=== PATIENT | female | born 2000 | race African-American/Black ===

== ENCOUNTER 2023-12-20 10:10 | Emergency (ER) | payer OTHER, SELFPAY ==
[2023-12-20 10:30] VITALS: BP 108/67; PULSE 91; RESP 16; TEMP 35.9; O2SAT 96; BMI 37.8
--- NOTE | 2023-12-20 11:34 | ED_ITS ---
HPI - General Adult General Time Seen by Provider: 11:34 Date Seen: 12/20/23 Chief complaint: Abdominal Pain Stated complaint: Acid reflux Time Seen by Provider: 12/20/23 11:32 Source: patient, RN notes reviewed and old records reviewed Mode of arrival: ambulatory Limitations: no limitations History of Present Illness HPI narrative: This 23-year-old female from [facility] is coming in with pain with eating. She is also reporting reflux symptoms. Last night was better than the night before. Two weeks ago she was treated with 5 day course of steroids for viral bronchitis. Saturday she reportedly started having emesis, evans black in nature, burning in her throat, went to urgent care yesterday, had negative strep, had a CBC done. They put her on omeprazole 20 b.i.d. for 14 days and famotidine 20 mg b.i.d. x3 days. night she notes she was having more problem sleeping but last night was better. She feels her cough is possibly little worse with the reflux symptoms again. No fevers or chills. She states she still been having bowel movements but has not had 1 recently. She endorses diminished food intake. She is endorsing both acid reflux symptoms as well as some difficulty eating. Prior to Saturday of this week, notes Saturday night of last week, 1 week ago had steak and wine in just felt like it did not digest well. Saturday night she did not sleep well but also had alcohol that night. Saturday morning of this week when her symptoms started she just woke up and felt bloated in a bit sluggish. She ate oatmeal that morning. She did have 2 sliders for lunch that day. She really has not eaten anything much since then. Only had tea and water yesterday. On Saturday she did have episodes of reported red and black vomiting. She does show me a picture, it is dark, do think I can potentially see some reddish change in the vomit. She is worried about esophageal perforation. Reviewed with her that with her clinical presentation and her looking so clinically well, I am not very suspicious of an esophageal perforation. We reviewed how sick those patients do get. Did review with her though that she recently was on prednisone, that can cause some gastric irritation. Also reviewed that with her symptoms, would consider having her get an EGD if symptoms were continuing. We do not do those emergently out of the ER. She does understand that. Will start with some imaging, obtain further labs. Note for labs yesterday, had negative strep, white blood count was mildly up at 16,390, hemoglobin at 11.7. Absolute neutrophil count 12,900. Related Data Previous Rx's Medication Instructions Recorded famotidine 20 mg tablet 20 mg PO BID 3 days #6 tabs 12/19/23 omeprazole 20 mg tablet,delayed 20 mg PO BID 14 days #28 tabs 12/19/23 release Allergies Allergy/AdvReac Type Severity Reaction Status Date / Time No Known Drug Allergies Allergy Verified 12/19/23 18:13 Review of Systems Status of ROS: Reports: 6 or more systems reviewed and unremarkable except as noted in History and below Exam Const: Vital Signs, click to edit/add: Vital Signs - 24 hr 12/20/23 10:30 12/20/23 12:33 Temperature 96.7 F L Pulse Rate [Pulse Oximeter] 91 88 Respiratory Rate 16 16 Blood Pressure [Ri ght Upper Arm] 108/67 111/76 Pulse Oximetry 96 98 Oxygen Delivery Me thod Room Air Room Air Patient is alert, interactive, no apparent distress, sitting upright in the chair in exam room 4. Sclera clear, able speak in complete sentences, no hoarseness. Lungs clear, good air entry, no wheezing crackles. CV regular rate and rhythm, no murmur, normal S1-S2, no S3-S4. Abdomen is currently soft, complains of no tenderness on palpation, does have normal bowel sounds. No masses organomegaly noted, certainly no rebound or guarding. Documenting provider has reviewed patient's vital signs: yes Course Course ED Course: Will obtain flat and upright imaging to rule out obstructive process. Will recheck some labs on her including CBC and comprehensive metabolic panel. [facility], she does not have an acute surgical abdomen, exam is quite benign. She certainly could have some late affects of prednisone, possible atypical gastroenteritis. She could be manifesting reflux as well, would not surprise me in recent setting of prednisone use. Reevaluation(s) Time of Reevaluation #1: 13:01 Reevaluation #1: Reviewed with patient her abdominal imaging is not showing any acute pathology. Her white blood count actually looks better, chemistries overall has out of mild be increase in her C reactive protein are fine. Given her benign abdominal examination, negative labs, doubt that we need to be worried about anything such as pancreatitis or gallbladder disease at this time. She is having no obstructive pathology. She wants to try some apple juice and crackers, we will see if she can tolerate this. Plan will be to discharge to home with further outpatient follow-up if ongoing symptoms. It is possible she has ongoing issue she may need to have an EGD but does not require this emergently now. She does not need any further imaging based on her evaluation here at this time. With her normal hemoglobin, there is no evidence of any active bleeding at this time. Agree with completion of the outpatient medicine she was given in urgent care. Vital Signs Vital signs: Initial Vital Signs Temperature 96.7 F L 12/20/23 10:30 Temperature Source Temporal Artery Scan 12/20/23 10:30 Pulse Rate 91 12/20/23 10:30 Respiratory Rate 16 12/20/23 10:30 Blood Pressure 108/67 12/20/23 10:30 Blood Pressure Mean 80 12/20/23 10:30 Blood Pressure Position Supine 12/20/23 10:30 Pulse Oximetry 96 12/20/23 10:30 Oxygen Delivery Method Room Air 12/20/23 10:30 Vital Signs Temperature 96.7 F L 12/20/23 10:30 Pulse Rate 91 12/20/23 10:30 Respiratory Rate 16 12/20/23 10:30 Blood Pressure 108/67 12/20/23 10:30 Pulse Oximetry 96 12/20/23 10:30 Oxygen Delivery Method Room Air 12/20/23 10:30 Temperature 96.7 F L 12/20/23 10:30 Pulse Rate 88 12/20/23 12:33 Respiratory Rate 16 12/20/23 12:33 Blood Pressure 111/76 12/20/23 12:33 Pulse Oximetry 98 12/20/23 12:33 Oxygen Delivery Method Room Air 12/20/23 12:33 Medical Decision Making Lab Data Labs: Lab Results 12/20/23 Range/Units 11:54 WBC 8.50 (4.50-11.00) K/uL RBC 4.47 (4.00-5.20) m/uL Hgb 12.1 (12.0-16.0) gm/dL Hct 38.6 (33.0-51.0) % MCV 86 (80-100) fL MCH 27 (26-34) pg MCHC 31 L (32-36) gm/dL RDW Coeff of Jenny 13.0 (11.5-15.5) % Plt Count 355 (140-440) K/uL Neut % (Auto) 74.1 H (42.0-72.0) % Lymph % (Auto) 17.4 L (20-44) % Letcher % (Auto) 4.8 (0.0-11.0) % Eos % (Auto) 3.2 (0.0-7.0) % Baso % (Auto) 0.4 (0.0-3.0) % Neut # (Auto) 6.30 (1.7-7.0) K/uL Lymph # (Auto) 1.50 (0.90-2.90) K/uL Letcher # (Auto) 0.40 (0.00-0.90) K/UL Eos # (Auto) 0.27 (0.00-0.50) K/uL Baso # (Auto) 0.03 (0.00-0.30) K/uL Abs Immat Gran (auto) 0.01 (0.00-0.30) K/uL Imm/Tot Granulo (auto) 0.1 % Sodium 139 (135-149) mmol/L Potassium 3.5 L (3.6-5.1) mmol/L Chloride 104 (96-114) mmol/L Carbon Dioxide 25 (20-32) mmol/L Anion Gap 10 (7-15) mEq/L BUN 6 (5-24) mg/dL Creatinine 0.7 (0.5-1.5) mg/dL Estimated Creat Clear 118.01 Estimated GFR 125 ml/min Glucose 94 (60-115) mg/dL Lactate 0.6 (0.5-1.9) mmol/L Calcium 9.4 (8.4-10.6) mg/dL Total Bilirubin 0.9 (0.1-1.5) mg/dL AST 19 (12-35) U/L ALT 21 (4-35) U/L Alkaline Phosphatase 51 (40-150) U/L C-Reactive Protein 4.6 H (0.5-1.0) mg/dL Total Protein 8.1 (6.0-8.3) g/dL Albumin 4.7 (3.3-5.0) g/dL Lipase 46 (23-300) U/L Imaging Data Abdominal x-ray: Attestation: I have reviewed the pertinent imaging results. My impression: I see no acute pathology on this imaging on my preliminary review. Radiologist's impression: Patient: CHAVEZ LIND Facility:?[facility] Patient ID:?[id number] Site Patient ID:?[id number]. Site :?[id number] Study:?XRay Abdomen F/UP-12/20/2023 12:19:58 PM Ordering Physician:Jerica Zaragoza Final Report: Indication: Abdominal pain Technique: Flat and upright views of the abdomen were acquired Comparison: None Findings: No pathologic calcifications. No findings of ileus, obstruction or perforation. No free air. Mild fecal retention. Impression: Mild fecal retention. No pathologic calcifications. No findings of ileus, mechanical obstruction or perforation. Dictated by Michael Falk MD @ 12/20/2023 12:44:21 PM (Electronic Signature) Discharge Plan Discharge Clinical Impression: Gastroesophageal reflux disease Qualifiers: Esophagitis presence: esophagitis presence not specified Qualified Code(s): K21.9 - Gastro-esophageal reflux disease without esophagitis Patient Disposition: Home, Self-Care Condition: Stable Instructions: GERD (Gastroesophageal Reflux Disease) (ED) Additional Instructions: Complete the medications that were prescribed in urgent care, take as they were prescribed. Recommend clear liquids and soft foods, can advance diet back to regular as you are feeling better. There is no evidence of any active bleeding or anemia from blood loss at this time. It is possible if people have stomach irritation or do throw up that there can be small Rips in the lining, this is call the Sheila-Gomez tear. These are usually self-limited and not of concern in the vast majority of people. This time, there is no evidence of any concerning active bleeding for you. I would have you watch for increasing abdominal pain, abdominal pain associated with fever or vomiting and recheck if you have any of these. See if the omeprazole does start to help through the weekend. If you are continuing to have reflux symptoms or any pain with swallowing, may need an EGD scheduled. Before you would ever have an EGD here, would highly encourage you to work with your insurance to make sure our facility is covered for this outpatient procedure. Activity Level: Activity as Tolerated Prescriptions: No Action omeprazole 20 mg tablet,delayed release (DR/EC) 20 mg PO BID 14 Days Qty: 28 0RF famotidine 20 mg tablet 20 mg PO BID 3 Days Qty: 6 0RF Follow Up/Referrals: Provider,Not a Local [Primary Care Provider] - Stand Alone Forms: Rapportive Info Instructions
--- NOTE | 2023-12-20 11:43 | CRLHL7_ITS ---
For Patients: As a result of the Century Cures Act, medical imaging exams and procedure reports are released immediately into your electronic medical record. You may view this report before your referring provider. If you have questions, please contact your health care provider. Indication: Abdominal pain Technique: Flat and upright views of the abdomen were acquired Comparison: None Findings: No pathologic calcifications. No findings of ileus, obstruction or perforation. No free air. Mild fecal retention. Impression: Mild fecal retention. No pathologic calcifications. No findings of ileus, mechanical obstruction or perforation. Dictated by Michael Falk MD @ 12/20/2023 12:44:21 PM (Electronically Signed)
[2023-12-20 12:00] LABS: Lactate* 0.6 mmol/L (0.5-1.9)
[2023-12-20 12:01] LABS: Basophils Absolute Auto 0.03 K/uL (0.00-0.30); Basophils Percent Auto 0.4 % (0.0-3.0); Eosinophils Absolute Auto 0.27 K/uL (0.00-0.50); Eosinophils Percent Auto 3.2 % (0.0-7.0); Hematocrit 38.6 % (33.0-51.0); Hemoglobin* 12.1 gm/dL (12.0-16.0); Immature Granulocytes Abs Auto 0.01 K/uL (0.00-0.30); Immature Granulocytes Pct Auto 0.1 %; Lymphocytes Percent Auto 17.4 % (20-44); Mean Corpuscular HGB Conc 31 gm/dL (32-36); Mean Corpuscular Hemoglobin 27 pg (26-34); Mean Corpuscular Volume 86 fL (80-100); Monocytes Percent Auto 4.8 % (0.0-11.0); Neutrophils Percent Auto 74.1 % (42.0-72.0); Platelet Count* 355 K/uL (140-440); Red Blood Count 4.47 m/uL (4.00-5.20)
--- OUTSIDE RECORDS SUMMARY | 2023-12-20 12:07 | XMS_ITS | Referral Summary ---
Author Name Unknown Organization [facility] Address [address] [place] [id number] Care Team Providers Care Hand Wrapper Operator Name Role Phone No Ref-Primary, Physician Primary Care Provider Allergies No known active allergies Medications Medication Sig Dispensed Refills Start Date End Date Status zolpidem (AMBIEN) 5 MG tablet Take tablet by mouth 15 minutes prior to sleep, for Sleep Study 1 tablet 0 10/27/2020 Active Active Problems Problem Noted Date Diagnosed Date Bipolar 1 disorder 10/27/2020 Class 1 obesity due to exces s calories with body mass index (BMI) of 32.0 to 32.9 in adult, unspecified whether serious comorbidity present 10/27/2020 Social History Tobacco Use Types Packs/Day Years Used Date Smoking Tobacco: Never Smokeless Tobacco: Never Adolescent Education Answer Date Record ed Getting School Help Needed Not on file 08/16 Sex and Gender Information Value Date Recorded Sex Assigned at Not on file Gender Identity Not on file Sexual Orientation Not on file Last Filed Vital Signs Vital Sign Reading Time Taken Comments Blood Pressure - - Pulse - - Temperature - - Respiratory Rate - - Oxygen Saturation - - Inhaled Oxygen Concentration - - Weight 90.7 kg (200 lb) 10/27/2020 9:37 AM SALON DESIGNER Height 167.6 cm (5' 6) 10/27/2020 9:37 AM SALON DESIGNER Body Mass Index 32.28 10/27/2020 9:37 AM SALON DESIGNER Plan of Treatment Not on file Care Teams Hand Wrapper Operator Relationship Specialty Start Date End Date No Ref-Primary, Physician PCP - General 10/18/20
--- OUTSIDE RECORDS SUMMARY | 2023-12-20 12:07 | XMS_ITS | Clinical Summary ---
Author Name Unknown Organization [facility] Address [place], [place] [address] Care Team Providers Care Regional Driver Name Role Phone Pcp, No Unavailable Unavailable Bin Haynes DO Primary Care Provider Amanda ramon Allergies No known active allergies Medications Medication Sig Dispensed Refills Start Date End Date Status ARIPiprazole (ABILIFY) 5 mg tablet Take 7.5 mg by mouth once daily. 0 09/22/2021 Active dextroamphetamine-a mphetamine (ADDERALL XR) 5 mg Extended-Release capsule Take 5 mg by mouth once daily. 0 08/14/2022 Active typhoid vaccin,live,attenua padilla (Vivotif Lacey Vaccine) 2 billion unit capsuleIndications: Typhoid-paratyphoid vaccination Take 1 capsule by mouth with lukewarm water on empty stomach on days 1,3,5 and 7. 4 Capsule 0 10/15/2022 Active doxycycline (ADOXA) 100 mg tabletIndications:P harmacologic therapy Begin 1-2 days before and continue until 4 wks after exposure for prevention of malaria. 105 Tablet 0 10/15/2022 Active Active Problems Problem Noted Date Diagnosed Date Bipolar 1 disorder 10/27/2020 Class 1 obesity due to exces s calories with body mass index (BMI) of 32.0 to 32.9 in adult 10/27/2020 Immunizations Name Administration Dates Next Due COVID-19 vaccine (Moderna 100mcg/0.5mL) PFRAYMOND 12/08/2021 COVID-19 vaccine ([employer] 30mcg/0.3mL) PF, MDV 03/17/2021,02/24/2021 DTP 06/03/2006, 3,06/01/2002,04/10,01/30/2002 DTaP 06/03/2006, 3,06/01/2002,04/10,01/30/2002 HIB-HepB (Comvax) 12/22/2002,04/10/2002,01/31/20 02 HPV 9 (Gardasil 9) 01/14/2017,07/25/2016 Hepatitis A (Peds) 01/26/2009,06/03/2006 Human Papilloma Virus Vaccine 07/25/2016 Inactivated Polio Vaccine 06/03/2006,06/2002,04/10/2002,01/30 Influenza, IIV3 (Age 6-35 mos) 05/05/2019,2002,09/30/2003 Influenza, IIV3 (Age >=3 years) 11/21/20 12,10/05/2008,11/01/2003,09/30 Influenza,LAIV4 Live Intrana nataliia (Flumist) 09/17/2022,09/08/2021,08/11/2020 MMR 06/03/2006,12/23/2002 Meningococcal Mcv4, Unspecif ied Formulation 10/11/2020 Meningococcal Vaccine 10/11/2020 Meningococcal Vaccine (Menactra) 05/05/2019,02/2013 Pneumococcal conj 7-Valent (Prevnar 7) 1 11/30/2002,06/01/2002,04/10/2002,03/10 Polio Virus, Unspecified 06/03/2006,06/2002,04/10/2002,01/30 Tdap 10/11/2020,11/21/2012 Typhoid (injectable) 05/05/2019 Varicella Vaccine 01/26/2009,12/23/2002 Yellow Fever 05/05/2019 Family History Medical History Relation Name Comments Diabetes Father Good Health Mother Relation Name Status Comments Father Mother Social History Tobacco Use Types Packs/Day Years Used Date Smoking Tobacco: Never Smokeless Tobacco: Never Tobacco Cessation:Counseling Given: Yes Alcohol Use Standard Drinks/Week Comments No 0 (1 standard drink = 0.6 oz pur e alcohol) PHQ-2 Answer Date Recorded PHQ-2 TOTAL SCORE 6 12/23/2020 Social Connections Answer Date Recorded Frequency of Communication with Friends and Fami ly Not on file 11/24/2021 Financial Resource Strain Answer Date R ecorded Difficulty of Paying Living Expenses Not on file 11/24/2021 Difficulty of Paying Living Expenses Not on file 11/24/2021 Sex and Gender Information Value Date Recorded Sex Assigned at Not on file Gender Identity Not on file Sexual Orientation Not on file Obstetrics History Last Filed Vital Signs Vital Sign Reading Time Taken Comments Blood Pressure 114/71 10/15/2022 1:36 PM CHIEF LIBRARIAN CIRCULATION DEPARTMENT Pulse 70 10/15/2022 1:36 PM CHIEF LIBRARIAN CIRCULATION DEPARTMENT Temperature 36.9 ??C (98.5 ??F) 07/03/2016 11:20 AM C DT Respiratory Rate 16 06/11/2017 10:13 AM CDT Oxygen Saturation 100% 10/15/2022 1:36 PM CHIEF LIBRARIAN CIRCULATION DEPARTMENT Inhaled Oxygen Concentration - - Weight 103 kg (227 lb) 10/15/2022 1:36 PM CHIEF LIBRARIAN CIRCULATION DEPARTMENT Height 168.5 cm (5' 6.34) 12/23/2020 2:03 PM CS T Body Mass Index - - Plan of Treatment Health Maintenance Due Date Last Done Comments HIV for age 15-65 2016 Hepatitis C screening for age 18-79 2019 BMI (ht and wt on same day) for age 18+ 12/23/2021 12/23/2020 Depression screening for age 12+ 12/23/2021 12/23/2020, 06/11/2017, 06/11/2017, Additional history exists Pap test for age 21-65 2022 COVID-19 vaccine series (2022- season) 2023 09/17/2022, 12/08/2021, 03/17/2021, Additional history exists Influenza for age 9-49 07/26/2023 , 09/08/2021, 08/11/2020, Additional history exists Tetanus booster 10/11/2030 10/11/2020, 11/21/2012 Pneumococcal series for age 6-64 Aged Out 09/30/2003, 06/01/2002, 04/10/2002, Additional history exists No longer eligible based on patient's age to complete this topic HPV series for age 9-26 Completed 01/14/20, 07/25/2016, 07/25/2016 Tdap Completed 10/11/2020, 11/21/2012 Care Teams Regional Driver Relationship Specialty Start Date End Date Bin Haynes DO . PCP - General Family Practice 07/03/16 Pcp, No . 06/29/15
--- OUTSIDE RECORDS SUMMARY | 2023-12-20 12:07 | XMS_ITS | Clinical Summary ---
Author Name Unknown Organization [facility] Address [address] [place] [id number] Care Team Providers Care Mothercraft Nurse Name Role Phone No Ref-Primary, Physician Primary [...] 90.7 kg (200 lb) 10/27/2020 9:37 AM DIRECTOR OF PUBLIC SAFETY Height 167.6 cm (5' 6) 10/27/2020 9:37 AM DIRECTOR OF PUBLIC SAFETY Body Mass Index 32.28 10/27/2020 9:37 AM DIRECTOR OF PUBLIC SAFETY Plan of Treatment Health Maintenance Due Date Last Done Comments ADVANCE CARE PLANNING 2001 ANNUAL REVIEW OF HM ORDERS 2001 CHLAMYDIA SCREENING 2001 YEARLY PREVENTIVE VISIT 2001 COVID-19 Vaccine (#1) 05/28/2002 DTAP/TDAP/TD IMMUNIZATION (6 - Tdap) 2012 06/03/2006, 12/23/2002, 06/01/2002, Additional history exists HIV SCREENING 2016 HEPATITIS C SCREENING 2019 PAP 2022 INFLUENZA VACCINE (#1) 2023 2, 10/05/2008, 11/01/2003, Additional history exists PHQ-2 (once per calendar year) 2023 HEPATITIS B IMMUNIZATION Completed 003, 04/10/2002, 01/30/2002 Pneumococcal Vaccine: Pediatrics (0 to 5 Years) and At-Risk Patients (6 to 64 Years) Aged Out 09/30/2003, 06/01/2002, 04/10/2002, Additional history exists No longer eligible based on patient's age to complete this topic IPV IMMUNIZATION Completed 06/03/2006, 08/2006, 06/01/2002, Additional history exists HPV IMMUNIZATION Completed 01/14/2017, , 07/25/2016 MENINGITIS IMMUNIZATION Completed 05/05/2019, 11/28 RSV MONOCLONAL ANTIBODY Aged Out No l onger eligible based on patient's age to complete this topic Care Teams Mothercraft Nurse Relationship Specialty Start Date End Date No Ref-Primary, Physician PCP - General 10/18/20
[2023-12-20 12:17] LABS: Slide Review Reflex No
[2023-12-20 12:23] LABS: Albumin* 4.7 g/dL (3.3-5.0); Chloride* 104 mmol/L (96-114); Potassium* 3.5 mmol/L (3.6-5.1); Sodium* 139 mmol/L (135-149)
[2023-12-20 12:25] LABS: Creatinine* 0.7 mg/dL (0.5-1.5); Est. Creatinine Clearance* 118.01; Estimated Glomerular Filt Rate 125 ml/min
[2023-12-20 12:26] LABS: Alanine Aminotransferase* 21 U/L (4-35); Alkaline Phosphatase* 51 U/L (40-150); Anion Gap 10 mEq/L (7-15); Aspartate Amino Transferase* 19 U/L (12-35); Bilirubin Total* 0.9 mg/dL (0.1-1.5); Blood Urea Nitrogen* 6 mg/dL (5-24); Carbon Dioxide* 25 mmol/L (20-32); Lipase* 46 U/L (23-300); Total Protein* 8.1 g/dL (6.0-8.3)
[2023-12-20 12:27] LABS: Calcium* 9.4 mg/dL (8.4-10.6); Glucose* 94 mg/dL (60-115)
[2023-12-20 12:29] LABS: C Reactive Protein* 4.6 mg/dL (0.5-1.0)
[2023-12-20 12:33] VITALS: BP 111/76; PULSE 88; RESP 16; O2SAT 98
== END 2023-12-20 13:18 | disposition home or self-care (01) ==
PROVIDERS: Emergency Provider Family Medicine
DX: K21.9 Gastro-esophageal reflux disease without esophagitis (principal)
CPT/HCPCS: 36415; 74019; 80053; 83605; 83690; 85025; 86140; 99283; 99284

== ENCOUNTER 2024-04-16 01:26 | Emergency (ER) | payer OTHER, SELFPAY ==
[2024-04-16 01:39] VITALS: BP 120/85; PULSE 66; RESP 20; TEMP 36.6; O2SAT 99; BMI 36.3
--- NOTE | 2024-04-16 01:47 | ED.GENADULT ---
HPI - General Adult General Chief complaint: Back Injury/Pain Stated complaint: back pain Time Seen by Provider: 04/16/24 01:37 History of Present Illness HPI narrative: Patient c/o intermittent upper back pain that woke her from sleep at 0035 today. Patient states she is recovering from bronchitis and a slight ear infection - was treated with amoxicillin at [facility] on 03/12/2024. Patient notes she has had some abdominal pain with her anbx use. Patient states that she cannot take oral steroids because it deteriorated her stomach lining in the past. Patient denies know injury. Patient took 200mg advil at 0045. 23-year-old young woman presenting to the emergency department concern of back pain. Woke much more extreme with this discomfort about an hour prior to arrival in the emergency department. Recently started on amoxicillin and prednisone with a diagnosis of ?bronchitis and a slight ear infection?. This though was 2 weeks ago. She is noting some stomach discomfort. On review of records available to me I only see reference to benzonatate. She is not having any ear pain. This discomfort in her back is not radiating. No noted injury. No dysuria frequency urgency. She has no shortness of breath and pain is not pleuritic. No leg pain or swelling. Related Data Home Medications ?Medication ?Instructions ?Recorded ?Confirmed etonogestrel 68 mg subdermal 1 implant subdermal ONCE 03/12/24 03/12/24 implant (Nexplanon) norethindrone 1 mg-ethinyl 1 tab PO DAILY 03/12/24 03/12/24 estradiol 20 mcg (21)-iron 75 mg (7) tablet (Aurovela Fe 1-20 (28)) Previous Rx's ?Medication ?Instructions ?Recorded benzonatate 200 mg capsule 200 mg PO BID-TID PRN cough #30 03/12/24 caps Allergies Allergy/AdvReac Type Severity Reaction Status Date / Time No Known Drug Allergies Allergy Verified 03/12/24 16:14 Review of Systems Status of ROS: Reports: 6 or more systems reviewed and unremarkable except as noted in History and below [facility] Social History Smoking Status: Former smoker Do you use any of these nicotine containing products: None Second hand tobacco smoke exposure: No How often do you have a drink containing alcohol: monthly or less AUDIT-C Alcohol total score: 1 Non-prescribed substance use: denies use service: No Exam Narrative: Exam Narrative: Pleasant. NAD. A little restless. Breathing easily. Transitions without difficulty. Moving upper extremities and lower extremities without difficulty. She is well-perfused peripherally. Strong equal pulses. Neck is supple without swelling or lymphadenopathy. No supraclavicular crepitus. Lungs are clear breath sounds throughout. Equal expansion excursion of the chest. Area in question of discomfort seems to be at the lower corner of the left scapula. Vaguely reproducible to palpation. No swelling or erythema here either. No pain to palpation of the lower extremities. Negative Homans. No swelling. Const: Vital Signs, click to edit/add: Vital Signs - 24 hr 04/16/24 01:39 Temperature 97.8 F Pulse Rate [Left P ulse Oximeter] 66 Respiratory Rate 20 Blood Pressure [Ri ght Upper Arm] 120/85 Pulse Oximetry 99 Oxygen Delivery Me thod Room Air Documenting provider has reviewed patient's vital signs: yes Course Vital Signs Vital signs: Initial Vital Signs Temperature 97.8 F 04/16/24 01:39 Temperature Source Temporal Artery Scan 04/16/24 01:39 Pulse Rate 66 04/16/24 01:39 Pulse Rhythm Regular 04/16/24 01:39 Respiratory Rate 20 04/16/24 01:39 Blood Pressure 120/85 04/16/24 01:39 Blood Pressure Mean 96 04/16/24 01:39 Blood Pressure Position Sitting 04/16/24 01:39 Pulse Oximetry 99 04/16/24 01:39 Oxygen Delivery Method Room Air 04/16/24 01:39 Vital Signs Temperature 97.8 F 04/16/24 01:39 Pulse Rate 66 04/16/24 01:39 Respiratory Rate 20 04/16/24 01:39 Blood Pressure 120/85 04/16/24 01:39 Pulse Oximetry 99 04/16/24 01:39 Oxygen Delivery Method Room Air 04/16/24 01:39 Temperature 97.8 F 04/16/24 01:39 Pulse Rate 66 04/16/24 01:39 Respiratory Rate 20 04/16/24 01:39 Blood Pressure 120/85 04/16/24 01:39 Pulse Oximetry 99 04/16/24 01:39 Oxygen Delivery Method Room Air 04/16/24 01:39 Medical Decision Making [facility] Narrative Medical decision making narrative: Given her described history perhaps pneumonia has evolved in this area in contributing to the pain. This seems to be somewhat musculoskeletal/chest wall. I do not see any rash to suggest evolving shingles. Did not clarify as to whether not had varicella vaccine. Pulmonary embolus is in differential as well though not really pleuritic. Pneumothorax or pneumomediastinum?. Doubtful vascular disruption. Costochondritis? She did not feel that she needed any pain medication. Decided to initiate investigation with basic chest x-ray. Reviewed by me this is normal. No pneumothorax or infiltrate. I returned to find Janel bent over backwards on the bed feet on the floor in an apparent attempt to stretch out her back. Discussing differential further decided to screen with some lab testing. White count is mildly elevated. CRP normal. Normal D-dimer. I think I would approach this now from musculoskeletal. Monitor closely for worsening or respiratory symptoms. With a mildly elevated white count this might represent more of a costochondritis? See patient discharge plan further discussion/plan Lab Data Lab results reviewed: Yes I reviewed the patient's lab results Labs: Lab Results 04/16/24 Range/Units 02:45 WBC 11.11 H (4.50-11.00) K/uL RBC 4.45 (4.00-5.20) m/uL Hgb 12.0 (12.0-16.0) gm/dL Hct 37.9 (33.0-51.0) % MCV 85 (80-100) fL MCH 27 (26-34) pg MCHC 32 (32-36) gm/dL RDW Coeff of Jenny 12.7 (11.5-15.5) % Plt Count 367 (140-440) K/uL Neut % (Auto) 67.5 (42.0-72.0) % Lymph % (Auto) 24.8 (20-44) % Mower % (Auto) 5.0 (0.0-11.0) % Eos % (Auto) 2.2 (0.0-7.0) % Baso % (Auto) 0.2 (0.0-3.0) % Neut # (Auto) 7.50 H (1.7-7.0) K/uL Lymph # (Auto) 2.80 (0.90-2.90) K/uL Mower # (Auto) 0.60 (0.00-0.90) K/UL Eos # (Auto) 0.20 (0.00-0.50) K/uL Baso # (Auto) 0.00 (0.00-0.30) K/uL Abs Immat Gran (auto) 0.00 (0.00-0.30) K/uL Imm/Tot Granulo (auto) 0.3 % D-Dimer Quant (PE/DVT) 0.21 (0.00-0.50) ug/ml C-Reactive Protein < 0.5 L (0.5-1.0) mg/dL Discharge Plan Discharge Clinical Impression: Thoracic back pain Patient Disposition: Home, Self-Care Condition: Improved Additional Instructions: See handout on stretches for the upper back that I would consider doing months or twice daily in the short term. Be re-evaluated for marked increase in pain, increasing difficulty breathing, associated fever. Can take up to 800 mg of ibuprofen or up to 1000 mg acetaminophen per dose. Alternative to the ibuprofen might be up to 500 mg naproxen 2 times daily. Prescriptions: No Action norethindrone-e.estradiol-iron [Aurovela Fe 1-20 (28)] 1 mg-20 mcg (21)/75 mg (7) tablet 1 tab PO DAILY Nexplanon 68 mg implant 1 implant subdermal ONCE Rx Instructions: as a single dose benzonatate 200 mg capsule 200 mg PO BID-TID PRN (Reason: cough) Qty: 30 0RF Follow Up/Referrals: Provider,Not a Local [Primary Care Provider] - Stand Alone Forms: OVIAth Info Instructions
--- NOTE | 2024-04-16 01:53 | CRLHL7_ITS ---
For Patients: As a result of the Century Cures Act, medical imaging exams and procedure reports are released immediately into your electronic medical record. You may view this report before your referring provider. If you have questions, please contact your health care provider. INDICATION: Back pain. TECHNIQUE: Chest 1 view. COMPARISON: None. FINDINGS: Cardiovascular and mediastinum: Heart size and vasculature are normal in caliber and appearance. Lungs and pleural spaces: Lungs are clear. No sign of infiltrate or mass. No sign of pleural effusion. No pneumothorax. Bones and soft tissues: No significant findings. IMPRESSION: Unremarkable chest. Dictated by Mitchell Zapata MD @ 04/16/2024 3:24:30 AM (Electronically Signed)
--- OUTSIDE RECORDS SUMMARY | 2024-04-16 02:02 | XMS_ITS | Encounter Summary ---
Author Organization [facility] Address [address] [address] Care Team Providers Care Medical Coding Technician Name Role Phone Unavailable Primary Care Provider Unavailabl e Reason for Visit * Reason Comments LAB RESULTS Encounter Details Date Type Department Care Team (Late st Contact Info) Description 02/11/2024 Telephone [place] Certified Nurse [employer] [address] [place], [place] [phone] Stephani Small, [employer], CN [address] [place], [place] [phone] LAB RESULTS Social History Tobacco Use Types Packs/Day Years Used Date Smoking Tobacco: Never Smokeless Tobacco: Never Alcohol Use Standard Drinks/Week Comments Not Currently 0 (1 standard drink = 0.6 oz pur e alcohol) Sex and Gender Information Value Date Recorded Sex Assigned at Female 02/07/2024 2:54 PM CDT Gender Identity Female 02/07/2024 2:54 PM CDT Sexual Orientation Pansexual 02/07/2024 2: 54 PM CDT Sexual Orientation Bisexual 02/07/2024 2: 54 PM CDT documented as of this encounter Progress Notes * Nicole Anna RN - 02/12/2024 4:46 PM CDTAddended by: NICOLE ANNA on: 02/12/2024 04:46 PM Modules accepted: Orders documented in this encounter Nursing Notes * Nicole Anna RN - 02/12/2024 4:45 PM CDT Pt calling, currently at [facility] in [place] to get Flagyl and Diflucan prescriptions. Says their pharmacy computer system was shut down yesterday so they could not receive any prescriptions. Asking that they be re-sent now. Medications re-sent as requested. * Graciela Pena RN - 02/11/2024 12:53 PM CDT Pt returned call, reviewed message below. Advised to abstain from intercourse and ETOH during treatment. * Graciela Pena RN - 02/11/2024 12:20 PM CDT Called pt, left message for callback. * Stephani Small APRN, CNM - 02/11/2024 12:11 PM CDT Please notify Janel of positive BV and yeast, I have sent rx to her pharmacy. documented in this encounter Plan of Treatment Not on file documented as of this encounter Visit Diagnoses Diagnosis BV (bacterial vaginosis)- Primary Vaginitis and vulvovaginitis, unspecified Vaginal yeast infection Candidiasis of vulva and vagina documented in this encounter
--- OUTSIDE RECORDS SUMMARY | 2024-04-16 02:02 | XMS_ITS | Encounter Summary ---
Author Organization [facility] Address [address] [address] Care Team Providers Care Collector Of Port Name Role Phone Unavailable Primary Care Provider Unavailabl e Reason for Visit * Reason Comments Annual Exam Encounter Details Date Type Department Care Team (Late st Contact Info) Description 02/07/2024 2:30 PM CDT Office Visit [facility] Nurse Gasoline Service Attendant [address] [place], [place] [address] [place] [address] Stephani Small, TURRET LATHE OPERATOR, CNM [address] [place], [place] [id number] Annual physical exam (Primary Dx); Breakthrough bleeding on Nexplanon; Screening for thyroid disorder; Screening for malignant neoplasm of cervix; Screening for lipoid disorders; Screening for diabetes mellitus; Screening for STD (sexually transmitted disease) Social History Tobacco Use Types Packs/Day Years Used Date Smoking Tobacco: Never Smokeless Tobacco: Never Tobacco Cessation:Counseling Given: Not Answered Alcohol Use Standard Drinks/Week Comments Not Currently 0 (1 standard drink = 0.6 oz pur e alcohol) Sex and Gender Information Value Date Recorded Sex Assigned at Female 02/07/2024 2:54 PM CDT Gender Identity Female 02/07/2024 2:54 PM CDT Sexual Orientation Pansexual 02/07/2024 2: 54 PM CDT Sexual Orientation Bisexual 02/07/2024 2: 54 PM CDT documented as of this encounter Last Filed Vital Signs Vital Sign Reading Time Taken Comments Blood Pressure 120/57 02/07/2024 2:58 PM CDT Pulse 85 02/07/2024 2:58 PM CDT Temperature - - Respiratory Rate - - Oxygen Saturation - - Inhaled Oxygen Concentration - - Weight 103.9 kg (229 lb) 02/07/2024 2:58 PM CDT Height 166.9 cm (5' 5.71) 02/07/2024 2:58 PM CD T Body Mass Index 37.29 02/07/2024 2:58 PM CDT documented in this encounter Patient Instructions * Patient Instructions* Stephani Small APRN, CNM - 02/07/2024 2:30 PM CDT Advised patient she should be aware of the following symptoms when starting a control containing Estrogen and to call Triage Line or seek medical attention if the following symptoms occur: Abdominal Pain Chest Pain Severe Headaches Eye Problems/Vision Changes Severe Swelling in Legs * Attachments The following attachments cannot be sent through Care Everywhere. * Well Visit: 18 to 65 Years (Kazakh) * Breast Self-Exam (Kazakh) * !Vulvar Skin Care: To promote healthy vulvar skin (Kazakh) documented in this encounter Progress Notes * Stephani Small APRN, CNM - 02/07/2024 2:30 PM CDT Subjective: Janel Osuna is a 23 y.o. female who presents for an annual exam. Last annual exam was a few years ago; there have been no interval changes except what is noted here today. Patient's last menstrual period was 01/28/2024. The patient has the following complaints: Patient reports irregular cycles with her nexplanon, noted in the last year. She notes spotting for 3weeks to 1 month [facility] Additional, concern today is vaginal itching that is notice able after her cycles and lasts for couple week and has noticed a slight odor. Janel is Single. 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 MENSTRUAL HISTORY: Menarche at age 11. Menses are regular, every 30 days, and last 6 days. She denies bleeding after intercourse. Denies bleeding between periods. HEALTH HABITS: Social History Tobacco Use Smoking status: Never Smokeless tobacco: Never Substance Use Topics Alcohol use: Not Currently Alcohol/week: 0.0 - 1.0 standard drinks of alcohol Denies illicit or prescription drug use. Self breast exam: no. Wears seatbelts: yes. Regular exercise: yes. Calcium intake: adequate. DISTANCE LEARNING COORDINATOR HISTORY: Patient's last menstrual period was 01/28/2024. Sexual partners and contraception: single partner, contraception - Norplant. She is satisfied with this method. Last Pap: never had one done before Results: N/A. STD history: none. OB History Para Term AB Living 0 0 0 0 0 0 SAB IAB Ectopic Multiple Live Births 0 0 0 0 0 Past Medical History: Diagnosis Date Anxiety (HRC) Depression History reviewed. No pertinent surgical history. Patient's medications, allergies, past medical, surgical, social and family histories were reviewedand updated as appropriate. Immunization were reviewed and up to date. Review of Systems Unless noted below, complete review of systems was otherwise negative. Objective: BP 120/57 (BP Location: Right Arm, BP Cuff Size: Large) Pulse 85 Ht 5' 5.71 (1.669 m) Wt 229lb (103.9 kg) LMP 01/28/2024 No BMI 37.29 kg/m?? Estimated body mass index is 37.29 kg/m?? as calculated from the following: Height as of this encounter: 5' 5.71 (1.669 m). Weight as of this encounter: 229 lb (103.9 kg). General: Patient alert, in NAD. HEENT: PERRLA. Neck: Supple, without thyromegaly or mass. Upper extremities: FROM with good strength, no lesions or deformities. CARDIOVASCULAR: RRR without murmurs, rubs or gallops. LUNGS: Clear to auscultation without crackles, wheezes or distress. ABDOMEN: Soft, non-tender, without hepatosplenomegaly, masses, or hernias. BREAST: Nontender, without masses, nipple discharge, erythema, or axillary adenopathy. PELVIC: Normal external genitalia and urethra. [place], moist vaginal and cervical mucosa, without lesions. On bimanual exam, uterus is mobile, normal size, shape & consistency, with no uterine or adenexal masses appreciated. Rectal: Not examined. Lymphatic: No neck, supraclavicular, axillary or groin lymphadenopathy. Lower extremities: FROM, normal gait without edema, lesions, or deformity. Skin: No lesions. Neuro: grossly intact. Psychiatric: Alert & oriented with normal affect and insight, does not appear depressed or anxious. PHQ-9: 0. CESAR: 0. Assessment: Healthy female exam. 1. Annual physical exam 2. Breakthrough bleeding on Nexplanon 3. Screening for thyroid disorder 4. Screening for malignant neoplasm of cervix 5. Screening for lipoid disorders 6. Screening for diabetes mellitus 7. Screening for STD (sexually transmitted disease) Plan: Orders Placed This Encounter Procedures PAP Test HGB A1C TSH LIPID PANEL AND DIRECT LDL(IF NEEDED) Janel was seen today for annual exam. Diagnoses and all orders for this visit: Annual physical exam Breakthrough bleeding on Nexplanon Screening for thyroid disorder - TSH; Future Screening for malignant neoplasm of cervix - Scr Pap Smer; Obtain Prep&Convy-Lab - PAP Test Screening for lipoid disorders - LIPID PANEL AND DIRECT LDL(IF NEEDED); Future Screening for diabetes mellitus - HGB A1C; Future Screening for STD (sexually transmitted disease) - Hepatitis C Antibody, with Reflex; Future - HIV 1/2 Ag/Ab 4th Generation; Future - Treponema Screen; Future - Hepatitis B Surface Antigen; Future - Vaginitis Panel (Includes Bacterial Vaginosis, Gayle Species, Gayle Glabrata and Trichomonas Vaginalis.); Future - Chlamydia & GC (14 Years and Older): Vagina; Future - Vaginitis Panel (Includes Bacterial Vaginosis, Gayle Species, Gayle Glabrata and Trichomonas Vaginalis.) - Chlamydia & GC (14 Years and Older): Vagina Other orders - Norethin Martinez-Eth Estrad-FE (MICROGESTIN FE 12/14) 1-20 MG-MCG tablet; Take 1 Tablet by mouth daily. Breakthrough bleeding -Discussed that it's not uncommon to have breakthrough bleeding with nexplanon. Given length of spotting will add oral control pill only for 3 cycles and reevaluate in 3 months. Patient Counseling: --Nutrition: Stressed importance of caloric balance, sufficient intake of fresh fruits, vegetables,fiber, calcium, iron, and adequate folate supplement per day (for females capable of ). --Discussed the issue of adequate calcium/vitamin D intake/supplementation. --Exercise: Stressed the importance of regular exercise. --Stressed importance of monthly breast exams; demonstration given on proper technique. --Sexuality: Discussed sexually transmitted diseases, partner selection, use of condoms, avoidance of unintended and contraceptive alternatives. Return to clinic in 1 year for annual exam, or sooner PRN. Stephani Small APRN, CNM documented in this encounter Plan of Treatment Not on file documented as of this encounter Procedures Procedure Name Priority Date/Time Associated Diagnosis Comments PAP TEST Routine 02/07/2024 3:53 PM CDT Screening for malignant neoplasm of cervix VAGINITIS PANEL Routine 02/07/2024 3:53 PM CDT Screening for STD (sexually transmitted disease) CHLAMYDIA & GC (14 YEARS & OLDER) Routine 02/07/2024 3:53 PM CDT Screening for STD (sexually transmitted disease) documented in this encounter Results * Chlamydia & GC (14 Years and Older): Vagina (02/07/2024 3:53 PM CDT) Chlamydia Trachomatis STD Not Detected Not Detected 02/08/2024 1:14 PM CDT [facility] N. gonorrhoeae STD Not Detected Not Detected 02/08/2024 1:14 PM CDT [facility] Swab STD SPECIMEN FROM VAGINA / Unknown Non-blood Collection / Unknown 02/07/2024 3:53 PM CDT 02/07/2024 4:[address] [facility] - 02/08/2024 1:14 PM CDT Test performed by Sales Representative [employer] Mediated Amplification (TMA). Stephani Small APRN, CNM LAB_1 [facility] [address] * (ABNORMAL) Vaginitis Panel (Includes Bacterial Vaginosis, Gayle Species, Gayle Glabrata and Trichomonas Vaginalis.) (02/07/2024 3:53 PM CDT) Bacterial Vaginosis Positive(A) Negative 02/08/2024 12:17 PM CDT [facility] Gayle species Positive(A) Negative 02/08/2024 12:17 PM CDT [facility] Gayle glabrata Negative Negative 02/08/2024 12:17 PM CDT [facility] Trichomonas vaginalis Negative Negative 02/08/2024 12:17 PM CDT [facility] Swab STD SPECIMEN FROM VAGINA / Unknown Non-blood Collection / Unknown 02/07/2024 3:53 PM CDT 02/07/2024 4:53 PM CDT Narrative [facility] - 02/08/2024 12:17 PM CDT Test performed by Sales Representative [employer] Mediated Amplification (TMA). Stephani Small APRN, [place] LAB_1 Performing Organization Address City/State/[facility] Co de Phone Number [facility] [address] * PAP Test (02/07/2024 3:53 PM CDT) Case Report Pap ? Case: [id number] ? Authorizing Provider: ??Stephani Small, PATRICK, CNM ?Collected: ? 02/07/2024 1553 ? Ordering Location: ? [facility] ?Received: ?02/07/2024 1654 ? Nurse Gasoline Service Attendant ? First Screen: ?Toshia Scott ? Specimen: ?Pap Test, Routine, Cervix/Endocervix ? 03/01/2024 9:45 AM CDT [facility] Pap Specimen Adequacy Satisfactory for evaluation, endocervical/evans sformation zone component absent. 03/01/2024 9:45 AM CDT [facility] Pap Interpretation (NILM) Negative for intraepithelial lesion or malignancy. 03/01/2024 9:45 AM CDT [facility] Pap Other Findings Fungal organisms morphologically consistent with Gayle spp. 03/01/2024 9:45 AM CDT [facility] Pap Disclaimer The Pap test is a screening test to aid in the detection of cervical and vaginal cancers and their precursor lesions. It is not a diagnostic procedure and should not be used as the sole means of detecting malignancy. Both false-positive and false-negative results may occur. 03/01/2024 9:45 AM CDT [facility] Gross Description The specimen is received in SurePath fixative and properly labeled. 1 Pap-stained SurePath slide is prepared. 03/01/2024 9:45 AM CDT [facility] Embedded Images 9:45 AM CDT [facility] Other Specimen Type ENTIRE ENDOCERVIX / Unknown 02/07/2024 3:53 PM CDT 02/07/2024 4:54 PM CDT Comment:LMP: Patient's last menstrual period was 01/28/2024. Stephani Small APRN, CNM LAB PATHOLOGY Performing Organization Address [facility] de Phone Number [facility] [address] [place] [address] * Hepatitis B Surface Antigen (02/07/2024 3:41 PM CDT) Hepatitis B Surface Antigen Negative (Non Reactive) Negative (Non Reactive) 02/07/2024 8:42 PM CDT [facility] Blood Venipuncture / Unknown 02/07/2024 3:41 PM CDT 02/07/2024 3:41 PM CDT Stephani Small APRN, CNM LAB_1 Performing Organization Address [facility] de Phone Number [facility] [address] [place] [address] * Treponema Screen (02/07/2024 3:41 PM CDT) Treponema Screen Result 0.087 {s_co_ratio } 02/07/2024 8:42 PM CDT [facility] Treponema Screen Interpretation Non Reactive Non Reactive 02/07/2024 8:42 PM CDT [facility] Blood Venipuncture / Unknown 02/07/2024 3:41 PM CDT 02/07/2024 3:41 PM CDT Stephani Small APRN, CNM LAB_1 Performing Organization Address [facility] de Phone Number [facility] [address] [place] [address] * HIV 1/2 Ag/Ab 4th Generation (02/07/2024 3:41 PM CDT) HIV 1/2 Antigen/Antib bry (4th generation) Negative (Non Reactive) Negative (Non Reactive) 02/07/2024 8:35 PM CDT [facility] Comment:HIV-1 p24 Antigen an d HIV-1/HIV-2 Antibody not detected Blood Venipuncture / Unknown 02/07/2024 3:41 PM CDT 02/07/2024 3:41 PM CDT Stephani Small APRN, CNM LAB_1 Performing Organization Address [facility] Co de Phone Number [facility] [address] * Hepatitis C Antibody, with Reflex (02/07/2024 3:41 PM CDT) Pathologist [facility] Hepatitis C Antibody Negative (Non Reactive) Negative (Non Reactive) 02/07/2024 8:35 PM CDT [facility] Comment:Antibodies to HCV no t detected. Does not exclude the possiblity of exposure to HCV. Blood Venipuncture / Unknown 02/07/2024 3:41 PM CDT 02/07/2024 3:41 PM CDT Stephani Small APRN, CNM LAB_1 Performing Organization Address [facility] de Phone Number [facility] [address] * (ABNORMAL) LIPID PANEL AND DIRECT LDL(IF NEEDED) (02/07/2024 3:41 PM CDT) Pathologist [facility] Cholesterol 171 0 - 199 mg/dL 02/07/2024 8:10 PM CDT [facility] Triglyceride 106 <=149 mg/dL 02/07/2024 8:10 PM CDT [facility] HDL Cholesterol 39(L) >=40 mg/dL 8:10 PM CDT [facility] LDL, Calculated 111 <130 mg/dL 8:10 PM CDT [facility] Non HDL Chol, Calculated 132 <=159 mg/dL 02/07/2024 8:10 PM CDT [facility] Cholesterol/HDL Ratio 4.4 <=5.0 02/07/2024 8:10 PM CDT [facility] Hours Fasting 0.1 8 - 12 Hours 02/07/2024 8:10 PM CDT [facility] Blood Venipuncture / Unknown 02/07/2024 3:41 PM CDT 02/07/2024 3:41 PM CDT Stephani Small APRN, CNM LAB_1 Performing Organization Address [facility] Co de Phone Number [facility] [address] * TSH (02/07/2024 3:41 PM CDT) Pathologist [facility] TSH, Sensitive 0.97 0.30 - 4.50 uIU/mL 02/07/2024 8:43 PM CDT [facility] Blood Venipuncture / Unknown 02/07/2024 3:41 PM CDT 02/07/2024 3:41 PM CDT Stephani Small APRN, CNM LAB_1 Performing Organization Address [facility] Phone Number [facility] [address] * HGB A1C (02/07/2024 3:41 PM CDT) Pathologist [facility] Hemoglobin A1C 4.6 <=5.6 % 02/08/2024 9:12 AM CDT [facility] Estimated Average Glucose (Calc) 85 < 117 mg/dL 02/08/2024 9:12 AM CDT [facility] Comment:Estimated average gl ucose (eAG) converts A1c into glucose units (mg/dL) and estimates average glucose over the past approximately 3 months. The eAG reference interval (<117 mg/dL) corresponds to an A1c of <5.7%. Blood Venipuncture / Unknown 02/07/2024 3:41 PM CDT 02/07/2024 3:41 PM CDT Stephani Small APRN, CNM LAB_1 Performing Organization Address [facility] Co de Phone Number [facility] [address] documented in this encounter Visit Diagnoses Diagnosis Annual physical exam- Primary Routine general medical examination at a health care facility Breakthrough bleeding on Nexplanon Metrorrhagia Screening for thyroid disorder Screening for malignant neoplasm of cervix Screening for malignant neoplasm of the cervix Screening for lipoid disorders Screening for diabetes mellitus Screening for STD (sexually transmitted disease) Screening examination for venereal disease documented in this encounter
--- OUTSIDE RECORDS SUMMARY | 2024-04-16 02:02 | XMS_ITS | Clinical Summary ---
Author Organization [facility] Address [address] [place] [address] Care Team Providers Care Compounding And Finishing Supervisor Name Role Phone Unavailable Primary Care Provider Unavailabl e Source Comments You are receiving this document as you are listed as the primary care provider,follow-up provider, or the patient has been referred to you for consultation.This is in compliance with the Medicare and[facility] Cent[facility] EHR Incentive Program,which states Providers who transition their patient to another setting of careor provider of care or refers their patient to another provider of care shouldprovide summary care record for each transition of care or referral. [facility] Allergies No known active allergies Medications Medication Sig Dispensed Refills Start Date End Date Status etonogestrel (NEXPLANON) 68 MG implant Inject 68 mg subcutaneously once. Placed Dec 2022 Active Norethin Martinez-Eth Estrad-FE (MICROGESTIN FE 12/14) 1-20 MG-MCG tablet Take 1 Tablet by mouth daily. 84 Tablet 3 02/07/2024 02/06/2025 Active Active Problems Problem Noted Date Diagnosed Date Bipolar 1 disorder 10/27/2020 Other obesity due to excess calories 10/27/2020 Encounters Date Type Department Care Team Description 02/11/2024 Telephone [place] [facility] Nurse Merchant [facility] [address] [facility] [place] [place], [place] [id number] Stephani Small, PATRICK, CATINA LAB RESULTS 02/07/2024 3:35 PM CDT Lab Visit [place] [facility] [address] [facility]. [place], [place] [id number] Screening for diabetes mellitus; Screening for thyroid disorder; Screening for lipoid disorders; Screening for STD (sexually transmitted disease) 02/07/2024 2:30 PM CDT Office Visit [place] [facility] Nurse Merchant [facility] [address] [facility] [place] [address] Stephani Small, CLIMATE CHANGE ANALYST, CNM Annual physical exam (Primary Dx); Breakthrough bleeding on Nexplanon; Screening for thyroid disorder; Screening for malignant neoplasm of cervix; Screening for lipoid disorders; Screening for diabetes mellitus; Screening for STD (sexually transmitted disease) 02/07/2024 E-Visit [place] [facility] [address] [facility] [place] [address] Mychart, Generic Provider 02/05/2024 1:30 PM CDT Telemedicine [place] [facility] [address] [facility] [place] [address] Leti Wallace RDN, LD Gastroesophageal reflux disease, unspecified whether esophagitis present (Primary Dx); Dietary counseling and surveillance from Last 3 Months Immunizations Name Administration Dates Next Due 9vHPV (Gardasil 9) 01/14/2017,07/25/2016 DTaP 06/03/2006, 3,06/01/2002,04/10,01/30/2002 Flu Vac (3+ yrs) 11/21/2012, 8,11/01/2003,09/30 Flu Vac Preserv Free (3+yrs) 05/05/2019 HepA Ped/Adol (1-18 yrs) 01/26/2009,06/03/2006 Hib/HBV 12/22/2002,04/10/2002,01/30/2002 IPV (Polio) 06/03/2006, 2,04/10/2002,01/30 Influenza LAIV (Nasal, 2-49 yrs) 09/17/2022,08/25,08/11/2020 MCV4 (Menactra) 05/05/2019,2012 MMR 06/03/2006,12/23/2002 Meningococcal MCV4, Unspecif ied Formulation 10/11/2020 Moderna Monovalent 12+ 12/08/2021 Pfizer Bivalent 12+ 09/17/2022 Pfizer Monovalent 12+ Purple Top 03/17/2021,04/0 12/2020 Pneumococcal 7, PED 09/30/2003, 2,04/10/2002,03/10 Tdap 10/11/2020,11/21/2012 Typhoid (Typhim Vi, IM) 05/05/2019 Varicella 01/26/2009,12/23/2002 YF (Yellow Fever) 05/05/2019 Family History Medical History Relation Name Comments Diabetes Father High Cholesterol Father High Cholesterol Mother No Known Problems Maternal Grandfather No Known Problems Maternal Grandmother No Known Problems Sister Relation Name Status Comments Father Alive Mother Alive Maternal Grandfather Alive Maternal Grandmother Alive Paternal Grandfather Paternal Grandmother Sister Alive Social History Tobacco Use Types Packs/Day Years [...] Orientation Bisexual 02/07/2024 2: 54 PM CDT Last Filed Vital Signs Vital Sign Reading Time Taken Comments Blood Pressure 120/57 02/07/2024 2:58 PM CDT Pulse 85 02/07/2024 2:58 PM CDT Temperature 37 ??C (98.6 ??F) 09/30/2016 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 Respiratory Rate 20 09/30/2016 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 Oxygen Saturation 100% 09/24/2016 6:44 PM CDT Inhaled Oxygen Concentration - - Weight 103.9 kg (229 lb) 02/07/2024 2:58 PM CDT Height 166.9 cm (5' 5.71) 02/07/2024 2:58 PM CD T Body Mass Index 37.29 02/07/2024 2:58 PM CDT Plan of Treatment Health Maintenance Due Date Last Done Comments Adult Preventive Visit 2019 Chlamydia 02/06/2025 02/07/2024 Cervical Cancer Screening 02/06/2027 02/07/2024 DTaP/Tdap/Td (9 - Tdap) 10/01/2033 10/01/20 23, 10/11/2020, 11/21/2012, Additional history exists Zoster/Shingles (1 of 2) 2051 HepB Completed 12/22/2002, 03/25, 01/30/2002 Hib Completed 12/22/2002, 03/25, 01/30/2002 Pneumococcal Aged Out 09/30/2003, 06/2002, 04/10/2002, Additional history exists No longer eligible based on patient's age to complete this topic IPV (Polio) Completed 06/03/2006, 06/2002, 04/10/2002, Additional history exists HepA Completed 01/26/2009, 06/03/2006 Varicella Completed 01/26/2009, 12/23/2002 HPV Vaccine Completed 01/14/2017, 07/25/2016 MCV4 Completed 10/11/2020, 04/25, 2012 COVID-19 Vaccine Completed 09/19/2023, , 12/08/2021, Additional history exists Influenza Completed 09/19/2023, 08/26, 09/08/2021, Additional history exists HIV Screening (Preventive Services) Completed 02/07/2024 Hep C Screening (Preventive Services) Completed 02/07/2024 Procedures Procedure Name Priority Date/Time Associated Diagnosis Comments CHLAMYDIA & GC (14 YEARS & OLDER) Routine 02/07/2024 3:53 PM CDT Screening for STD (sexually transmitted disease) VAGINITIS PANEL Routine 02/07/2024 3:53 PM CDT Screening for STD (sexually transmitted disease) PAP TEST Routine 02/07/2024 3:53 PM CDT Screening for malignant neoplasm of cervix HBSAG (HEPATITIS B SURFACE AG) Routine 02/07/2024 3:41 PM CDT Screening for STD (sexually transmitted disease) TREPONEMA SCREEN Routine 02/07/2024 3:41 PM CDT Screening for STD (sexually transmitted disease) HIV 1/2 AG/AB 4TH GEN Routine 02/07/2024 3:41 PM CDT Screening for STD (sexually transmitted disease) HEPATITIS C ANTIBODY, WITH REFLEX Routine 02/07/2024 3:41 PM CDT Screening for STD (sexually transmitted disease) LIPID PANEL & DIRECT LDL (IF NEEDED) Routine 02/07/2024 3:41 PM CDT Screening for lipoid disorders TSH, SENSITIVE Routine 02/07/2024 3:41 PM CDT Screening for thyroid disorder HGB A1C Routine 02/07/2024 3:41 PM CDT Screening for diabetes mellitus from Last 3 Months Results * PAP Test (02/07/2024 3:53 PM CDT) Case Report Pap ? Case: [id number] ? Authorizing Provider: ??Stephani Small, PATRICK, CATINA ?Collected: ? 02/07/2024 1553 ? Ordering Location: ? [place] [facility]ified ?Received: ?02/07/2024 1654 ? Nurse Merchant Mariner ? First Screen: ?Toshia Scott ? Specimen: ?Pap Test, Routine, Cervix/Endocervix ? 03/01/2024 9:45 AM CDT [facility] Pap Specimen Adequacy Satisfactory for evaluation, endocervical/evans sformation zone component absent. 03/01/2024 9:45 AM CDT [facility] Pap Interpretation (NILM) Negative for intraepithelial lesion or malignancy. 03/01/2024 9:45 AM CDT [facility] Pap Other Findings Fungal organisms morphologically consistent with Gayle spp. 03/01/2024 9:45 AM CDT [facility] Pap Disclaimer The Pap test is a screening test to aid in the detection of cervical and vaginal cancers and their precursor lesions. It is not a diagnostic procedure and should not be used as the sole means of detecting malignancy. Both false-positive and false-negative results may occur. 03/01/2024 9:45 AM CDT [facility] Gross Description The specimen is received in SurePath fixative and properly labeled. 1 Pap-stained SurePath slide is prepared. 03/01/2024 9:45 AM CDT [facility] Embedded Images 9:45 AM CDT [facility] Other Specimen Type ENTIRE ENDOCERVIX / Unknown 02/07/2024 3:53 PM CDT 02/07/2024 4:54 PM CDT Comment:LMP: Patient's last menstrual period was 01/28/2024. Stephani Small APRN, CNM LAB PATHOLOGY Performing Organization Address City/State/[facility] Co de Phone Number [facility] [address] * (ABNORMAL) Vaginitis Panel (Includes Bacterial Vaginosis, Gayle Species, Gayle Glabrata and Trichomonas Vaginalis.) (02/07/2024 3:53 PM CDT) Pathologist [facility] Bacterial Vaginosis Positive(A) Negative 02/08/2024 12:17 PM CDT [facility] Gayle species Positive(A) Negative 02/08/2024 12:17 PM CDT [facility] Gayle glabrata Negative Negative 02/08/2024 12:17 PM CDT [facility] Trichomonas vaginalis Negative Negative 02/08/2024 12:17 PM CDT [facility] Swab STD SPECIMEN FROM VAGINA / Unknown Non-blood Collection / Unknown 02/07/2024 3:53 PM CDT 02/07/2024 4:53 PM CDT [facility] - 02/08/2024 12:17 PM CDT Test performed by Route Jumper Mediated Amplification (TMA). Stephani Small APRN, CNM LAB_1 Performing Organization Address [facility] Co de Phone Number [facility] [address] [place] [address] * Chlamydia & GC (14 Years and Older): Vagina (02/07/2024 3:53 PM CDT) [facility] Chlamydia Trachomatis STD Not Detected Not Detected 02/08/2024 1:14 PM CDT [facility] N. gonorrhoeae STD Not Detected Not Detected 02/08/2024 1:14 PM CDT [facility] Swab STD SPECIMEN FROM VAGINA / Unknown Non-blood Collection / Unknown 02/07/2024 3:53 PM CDT 02/07/2024 4:53 PM CDT [facility] - 02/08/2024 1:14 PM CDT Test performed by Route Jumper Mediated Amplification (TMA). Stephani Small APRN, CATINA LAB_1 Performing Organization Address [facility]/ZIP Co de Phone Number [facility] [address] [place] [address], [place] * Treponema Screen (02/07/2024 3:41 PM CDT) Treponema Screen Result 0.087 {s_co_ratio } 02/07/2024 8:42 PM CDT [facility] Treponema Screen Interpretation Non Reactive Non Reactive 02/07/2024 8:42 PM CDT [facility] Blood Venipuncture / Unknown 02/07/2024 3:41 PM CDT 02/07/2024 3:41 PM CDT Stephani Small APRN, CNM LAB_1 Performing Organization Address [facility] de Phone Number [facility] [address] [place] [address] * HIV 1/2 Ag/Ab 4th Generation (02/07/2024 3:41 PM CDT) [facility] HIV 1/2 Antigen/Antib bry (4th generation) Negative (Non Reactive) Negative (Non Reactive) 02/07/2024 8:35 PM CDT [facility] Comment:HIV-1 p24 Antigen an d HIV-1/HIV-2 Antibody not detected Blood Venipuncture / Unknown 02/07/2024 3:41 PM CDT 02/07/2024 3:41 PM CDT Stephani Small APRN, CNM LAB_1 Performing Organization Address [facility] Co de Phone Number [facility] [address] [place] [address] * (ABNORMAL) LIPID PANEL AND DIRECT LDL(IF NEEDED) (02/07/2024 3:41 PM CDT) [facility] Cholesterol 171 0 - 199 mg/dL 02/07/2024 8:10 PM CDT [facility] Triglyceride 106 <=149 mg/dL 02/07/2024 8:10 PM CDT [facility] HDL Cholesterol 39(L) >=40 mg/dL 8:10 PM CDT [facility] LDL, Calculated 111 <130 mg/dL 8:10 PM CDT [facility] Non HDL Chol, Calculated 132 <=159 mg/dL 02/07/2024 8:10 PM CDT [facility] Cholesterol/HDL Ratio 4.4 <=5.0 02/07/2024 8:10 PM CDT [facility] Hours Fasting 0.1 8 - 12 Hours 02/07/2024 8:10 PM CDT [facility] Blood Venipuncture / Unknown 02/07/2024 3:41 PM CDT 02/07/2024 3:41 PM CDT Stephani Small APRN, CNM LAB_1 Performing Organization Address [facility] Phone Number [facility] [address] [place] [address] * TSH (02/07/2024 3:41 PM CDT) Pathologist [facility] TSH, Sensitive 0.97 0.30 - 4.50 uIU/mL 02/07/2024 8:43 PM CDT [facility] Blood Venipuncture / Unknown 02/07/2024 3:41 PM CDT 02/07/2024 3:41 PM CDT Stephani Small APRN, CNM LAB_1 Performing Organization Address [facility] Number [facility] [address] [place] [address] * Hepatitis C Antibody, with Reflex (02/07/2024 3:41 PM CDT) Pathologist [facility] Hepatitis C Antibody Negative (Non Reactive) Negative (Non Reactive) 02/07/2024 8:35 PM CDT [facility] Comment:Antibodies to HCV no t detected. Does not exclude the possiblity of exposure to HCV. Blood Venipuncture / Unknown 02/07/2024 3:41 PM CDT 02/07/2024 3:41 PM CDT Stephani Small APRN, CNM LAB_1 [facility] [address] * Hepatitis B Surface Antigen (02/07/2024 3:41 PM CDT) Pathologist [facility] Hepatitis B Surface Antigen Negative (Non Reactive) Negative (Non Reactive) 02/07/2024 8:42 PM CDT [facility] Blood Venipuncture / Unknown 02/07/2024 3:41 PM CDT 02/07/2024 3:41 PM CDT Stephani Small APRN, CATINA LAB_1 Performing Organization Address [facility] Co de Phone Number [facility] [address] * HGB A1C (02/07/2024 3:41 PM CDT) Pathologist [facility] Hemoglobin A1C 4.6 <=5.6 % 02/08/2024 9:12 AM CDT [facility] Estimated Average Glucose (Calc) 85 < 117 mg/dL 02/08/2024 9:12 AM CDT [facility] Comment:Estimated average gl ucose (eAG) converts A1c into glucose units (mg/dL) and estimates average glucose over the past approximately 3 months. The eAG reference interval (<117 mg/dL) corresponds to an A1c of <5.7%. Blood Venipuncture / Unknown 02/07/2024 3:41 PM CDT 02/07/2024 3:41 PM CDT Stephani Samll APRN, CNM LAB_1 Performing Organization Address City/[facility] Co de Phone Number [facility] [address] from Last 3 Months CHAVEZ LIND Personal/Family [address] [place] [address]
--- OUTSIDE RECORDS SUMMARY | 2024-04-16 02:02 | XMS_ITS | Encounter Summary ---
Author Organization [facility] Address [address], [place] [address] Care Team Providers Care Manager Book Name Role Phone Unavailable Primary Care Provider Unavailabl e Encounter Details Date Type Department Care Team (Late st Contact Info) Description 02/07/2024 3:35 PM CDT Lab Visit [facility] [address] [place] [address] Screening for diabetes mellitus; Screening for thyroid disorder; Screening for lipoid disorders; Screening for STD (sexually transmitted disease) Social [...] as of this encounter Progress Notes * Stephani Small APRN, CNM - 02/07/2024 3:35 PM CDT Labs within normal limits, unless otherwise specified, results to released to . documented in this encounter Plan of Treatment Not on file documented as of this encounter Procedures Procedure Name Priority Date/Time Associated Diagnosis Comments TREPONEMA SCREEN Routine 02/07/2024 3:41 PM CDT Screening for STD (sexually transmitted disease) HIV 1/2 AG/AB 4TH GEN Routine 02/07/2024 3:41 PM CDT Screening for STD (sexually transmitted disease) LIPID PANEL & DIRECT LDL (IF NEEDED) Routine 02/07/2024 3:41 PM CDT Screening for lipoid disorders TSH, SENSITIVE Routine 02/07/2024 3:41 PM CDT Screening for thyroid disorder HEPATITIS C ANTIBODY, WITH REFLEX Routine 02/07/2024 3:41 PM CDT Screening for STD (sexually transmitted disease) HBSAG (HEPATITIS B SURFACE AG) Routine 02/07/2024 3:41 PM CDT Screening for STD (sexually transmitted disease) HGB A1C Routine 02/07/2024 3:41 PM CDT Screening for diabetes mellitus documented in this encounter Results * Hepatitis B Surface Antigen (02/07/2024 3:41 PM CDT) Hepatitis B Surface Antigen Negative (Non Reactive) Negative (Non Reactive) 02/07/2024 8:42 PM CDT [facility] Blood Venipuncture / Unknown 02/07/2024 3:41 PM CDT 02/07/2024 3:41 PM CDT Stephani Small APRN, CNM LAB_1 [facility] [address] * Treponema Screen (02/07/2024 3:41 PM CDT) Treponema Screen Result 0.087 {s_co_ratio } 02/07/2024 8:42 PM CDT [facility] Treponema Screen Interpretation Non Reactive Non Reactive 02/07/2024 8:42 PM CDT [facility] Blood Venipuncture / Unknown 02/07/2024 3:41 PM CDT 02/07/2024 3:41 PM CDT Stephani Small APRN, CNM LAB_1 Performing Organization Address [facility] de Phone Number [facility] * HIV 1/2 Ag/Ab 4th Generation (02/07/2024 3:41 PM CDT) [facility] HIV 1/2 Antigen/Antib bry (4th generation) Negative (Non Reactive) Negative (Non Reactive) 02/07/2024 8:35 PM CDT [facility] Comment:HIV-1 p24 Antigen an d HIV-1/HIV-2 Antibody not detected Blood Venipuncture / Unknown 02/07/2024 3:41 PM CDT 02/07/2024 3:41 PM CDT Stephani Small APRN, CNM LAB_1 Performing Organization Address [facility] Phone Number [facility] [address] * Hepatitis C Antibody, with Reflex (02/07/2024 3:41 PM CDT) [facility] Hepatitis C Antibody Negative (Non Reactive) Negative (Non Reactive) 02/07/2024 8:35 PM CDT [facility] Comment:Antibodies to HCV no t detected. Does not exclude the possiblity of exposure to HCV. Blood Venipuncture / Unknown 02/07/2024 3:41 PM CDT 02/07/2024 3:41 PM CDT Stephani Small APRN, CATINA LAB_1 Performing Organization Address [facility] Phone Number [facility] [address] * (ABNORMAL) LIPID PANEL AND DIRECT LDL(IF NEEDED) (02/07/2024 3:41 PM CDT) [facility] Cholesterol 171 0 - 199 mg/dL 02/07/2024 8:10 PM CDT [facility] Triglyceride 106 <=149 mg/dL 02/07/2024 8:10 PM CDT [facility] HDL Cholesterol 39(L) >=40 mg/dL 8:10 PM CDT [facility] LDL, Calculated 111 <130 mg/dL 8:10 PM CDT [facility] Non HDL Chol, Calculated 132 <=159 mg/dL 02/07/2024 8:10 PM CDT [facility] Cholesterol/HDL Ratio 4.4 <=5.0 02/07/2024 8:10 PM CDT [facility] Hours Fasting 0.1 8 - 12 Hours 02/07/2024 8:10 PM CDT [facility] Blood Venipuncture / Unknown 02/07/2024 3:41 PM CDT 02/07/2024 3:41 PM CDT Stephani Small APRN, CATINA LAB_1 Performing Organization Address City/[facility]/ZIP Co de Phone Number [facility] [address] * TSH (02/07/2024 3:41 PM CDT) [facility] TSH, Sensitive 0.97 0.30 - 4.50 uIU/mL 02/07/2024 8:43 PM CDT [facility] Blood Venipuncture / Unknown 02/07/2024 3:41 PM CDT 02/07/2024 3:41 PM CDT Stephani Small APRN, CATINA LAB_1 [facility] [address] * HGB A1C (02/07/2024 3:41 PM CDT) [facility] Hemoglobin A1C 4.6 <=5.6 % 02/08/2024 9:12 AM CDT [facility] Estimated Average Glucose (Calc) 85 < 117 mg/dL 02/08/2024 9:12 AM CDT [facility] Comment:Estimated average gl ucose (eAG) converts A1c into glucose units (mg/dL) and estimates average glucose over the past approximately 3 months. The eAG reference interval (<117 mg/dL) corresponds to an A1c of <5.7%. Blood Venipuncture / Unknown 02/07/2024 3:41 PM CDT 02/07/2024 3:41 PM CDT Stephani Small APRN, CNM LAB_1 [facility] [address] documented in this encounter Visit Diagnoses Diagnosis Screening for diabetes mellitus Screening for thyroid disorder Screening for lipoid disorders Screening for STD (sexually transmitted disease) Screening examination for venereal disease documented in this encounter
--- OUTSIDE RECORDS SUMMARY | 2024-04-16 02:02 | XMS_ITS | Encounter Summary ---
Author Organization [facility] Address [address], [place] [address] Care Team Providers Care Senior Software Qa Engineer Name Role Phone Unavailable Primary Care Provider Unavailabl e Reason for Visit * Reason Comments Nutrition Counseling Encounter Details Date Type Department Care Team (Latest Contact Info) Description 02/05/2024 1:30 PM CDT Telemedicine [place] [address] [place] [address] Leti Wallace RDN, LD [address] [place] [address] Gastroesophageal reflux disease, unspecified whether esophagitis present (Primary Dx); Dietary counseling and surveillance Social History Tobacco Use Types Packs/Day Years Used Date Smoking Tobacco: Never Sex and Gender Information Value Date Recorded [...] - Inhaled Oxygen Concentration - - Weight 104.3 kg (230 lb) 02/05/2024 1:36 PM CDT Height 167.6 cm (5' 6) 02/05/2024 1:36 PM CDT Body Mass Index 37.12 02/05/2024 1:36 PM CDT documented in this encounter Progress Notes * Leti Wallace, KAROLN, LD - 02/05/2024 1:[address] [facility] Medical Nutrition Therapy Consult ASSESSMENT Referring Provider: Self-referred BMI: Estimated body mass index is 37.12 kg/m?? as calculated from the following: Height as of this encounter: 1.676 m (5' 6). Weight as of this encounter: 104.3 kg (230 lb). This visit was conducted via video Accompanied by self Ht 1.676 m (5' 6) Wt 104.3 kg (230 lb) BMI 37.12 kg/m?? Wt Readings from Last 3 Encounters: 02/05/24 104.3 kg (230 lb) 09/19/16 88.5 kg (195 lb) (98%)* * Growth percentiles are based on [facility] (Girls, 2-20 Years) data. What is the most important concern you want to discuss today: GERD Start of term, had bronchitis, took steroids-Prednisone, developed GERD also. Meal plan food is greasy, feels like it causes the reflux. Would like to get off the meal plan. Does have access to the salad bar. Biggest Challenge: Stomach gets upset: stomach pains, constipation, aches, uncomfortable, bloating,gas and burping-has odor. Living situation: Is a student at [employer]. On meal plan freshman year. Sophomore year was in a vegetarian house. Exercise: Patient is engaging in physical activity: did not discuss Diet History: Meal habits: at home and at table Beverages: water. INTERVENTION Medical Nutrition Therapy provided, including education and counseling on the following topics: Healthy Diet and Meal planning. Mindful eating. My Plate. Grocery List. MONITORING AND EVALUATION Patient Goals for Behavior Change: 1. Use the Grocery List handout to list out food you enjoy and like. Can be foods you typically buy, make, and eat. . 2. Observe and Keep a 3-day food record and journal. Record time of eating, length of meal time, portion sizes. Journal about your hunger/satiety using the appetite measure from the Mindful Eating sheet. Can also make note of any sensations or feelings related to feeding and eating. Note any GI symptoms. . 3. Plan out daily meal schedule 4. Review Low FODMAP Diet. Do Not Eat foods are food more likely to cause gas or bloating. It is okay to still eat these. Note on food record when you have gas and bloating. Follow up Plan: Future areas of discussion: Review food record/journal, goals Follow up with RD: in 2-4 weeks. Time: 30 minutes Thank you for this referral documented in this encounter Plan of Treatment Not on file documented as of this encounter Visit Diagnoses Diagnosis Gastroesophageal reflux disease, unspecified whether esophagitis present- Primary Dietary counseling and surveillance Dietary surveillance and counseling documented in this encounter
--- OUTSIDE RECORDS SUMMARY | 2024-04-16 02:02 | XMS_ITS | Encounter Summary ---
Author Organization Formerly [facility] Address [address] [address] Care Team Providers Care Placing Judge Name Role Phone Unavailable Primary Care Provider Unavailabl e Encounter Details Date Type Department Care Team (Late st Contact Info) Description 02/07/2024 E-Visit [address] [address] Mychart, [place] [address] Social History Tobacco Use Types Packs/Day Years [...] PM CDT documented as of this encounter Plan of Treatment Not on file documented as of this encounter Visit Diagnoses Not on filedocumented in this encounter
--- OUTSIDE RECORDS SUMMARY | 2024-04-16 02:03 | XMS_ITS | Clinical Summary ---
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
--- OUTSIDE RECORDS SUMMARY | 2024-04-16 02:03 | XMS_ITS | Clinical Summary ---
Author Organization [facility] Address [place], [place] [address] Care Team Providers Care Salvage Machine Operator Name Role Phone Pcp, No Unavailable Unavailable Bin Haynes DO Primary Care Provider Amanda ramon Allergies No known active allergies Medications Medication Sig Dispensed Refills Start Date End Date Status ARIPiprazole (ABILIFY) 5 mg tablet Take 7.5 mg by mouth once daily. 09/22/2021 Active dextroamphetamine-a mphetamine (ADDERALL XR) 5 mg Extended-Release capsule Take 5 mg by mouth once daily. 08/14/2022 Active typhoid vaccin,live,attenua padilla (Vivotif Lacey Vaccine) 2 billion unit capsuleIndications: Typhoid-paratyphoid vaccination Take 1 capsule by mouth with lukewarm water on empty stomach on days 1,3,5 and 7. 4 Capsule 10/15/2022 Active doxycycline (ADOXA) 100 mg tabletIndications:P harmacologic therapy Begin 1-2 days before and continue until 4 wks after exposure for prevention of malaria. 105 Tablet 10/15/2022 Active Active Problems Problem Noted Date Diagnosed Date Bipolar 1 disorder 10/27/2020 Class 1 obesity due to exces s calories with body mass index (BMI) of 32.0 to 32.9 in adult 10/27/2020 Immunizations Name Administration Dates Next Due COVID-19 vaccine (Moderna 100mcg/0.5mL) PF, MDV 12/08/2021 COVID-19 vaccine (Pfizer-Bio NTech 30mcg/0.3mL) PF, MDV 03/17/2021,02/24/2021 DTP 06/03/2006, 3,06/01/2002,04/10,01/30/2002 [...] (Prevnar 7) 1 11/30/2002,06/01/2002,04/10/2002,03/10 Polio Virus, Unspecified 06/03/2006,0 06/2002,04/10/2002,01/30 Tdap 10/11/2020,11/21/2012 Typhoid (injectable) 05/05/2019 Varicella Vaccine [...] Comments Blood Pressure 114/71 10/15/2022 1:36 PM ROLLER SKATER Pulse 70 10/15/2022 1:36 PM ROLLER SKATER Temperature 36.9 ??C (98.5 ??F) 07/03/2016 11:20 AM C DT Respiratory Rate 16 06/11/2017 10:13 AM CDT Oxygen Saturation 100% 10/15/2022 1:36 PM ROLLER SKATER Inhaled Oxygen Concentration - - Weight 103 kg (227 lb) 10/15/2022 1:36 PM ROLLER SKATER Height 168.5 cm (5' 6.34) 12/23/2020 2:03 [...] Additional history exists Influenza for age 9-49 07/26/2024 , 09/08/2021, 08/11/2020, Additional history exists Tetanus booster 10/11/2030 10/11/2020, 11/21/2012 Pneumococcal series for age 6-64 Aged Out 09/30/2003, 06/01/2002, 04/10/2002, Additional history exists No longer eligible based on patient's age to complete this topic HPV series for age 9-26 Completed 01/14/20 17, 07/25/2016, 07/25/2016 Tdap Completed 10/11/2020, 11/21/2012 Care Teams Salvage Machine Operator Relationship Specialty Start Date End Date Bin Haynes DO . PCP - General Family Practice 07/03/16 Pcp, No . 06/29/15
--- OUTSIDE RECORDS SUMMARY | 2024-04-16 02:03 | XMS_ITS | Referral Summary ---
Author Organization [facility] Address [address] [place] [id number] Care Team Providers Care Safety Engineer Pressure Vessels Name Role Phone No Ref-Primary, Physician Primary [...] 90.7 kg (200 lb) 10/27/2020 9:37 AM UNDERWEAR CUTTER Height 167.6 cm (5' 6) 10/27/2020 9:37 AM UNDERWEAR CUTTER Body Mass Index 32.28 10/27/2020 9:37 AM UNDERWEAR CUTTER Plan of Treatment Not on file Care Teams Safety Engineer Pressure Vessels Relationship Specialty Start Date End Date No Ref-Primary, Physician PCP - General 10/18/20
[2024-04-16 02:52] LABS: Basophils Percent Auto 0.2 % (0.0-3.0); Eosinophils Percent Auto 2.2 % (0.0-7.0); Hematocrit 37.9 % (33.0-51.0); Immature Granulocytes Pct Auto 0.3 %; Lymphocytes Percent Auto 24.8 % (20-44); Mean Corpuscular HGB Conc 32 gm/dL (32-36); Mean Corpuscular Hemoglobin 27 pg (26-34); Mean Corpuscular Volume 85 fL (80-100); Neutrophils Percent Auto 67.5 % (42.0-72.0); Platelet Count* 367 K/uL (140-440); RDW Coefficient of Variation % 12.7 % (11.5-15.5); Red Blood Count 4.45 m/uL (4.00-5.20); White Blood Count* 11.11 K/uL (4.50-11.00)
[2024-04-16 02:55] LABS: Slide Review Reflex No
[2024-04-16 03:12] LABS: C Reactive Protein* < 0.5 mg/dL (0.5-1.0)
[2024-04-16 03:13] LABS: D Dimer Quantitative* 0.21 ug/ml (0.00-0.50)
== END 2024-04-16 04:22 | disposition home or self-care (01) ==
PROVIDERS: Emergency Provider Family Medicine
DX: M54.6 Pain in thoracic spine (principal)
CPT/HCPCS: 36415; 71045; 85025; 85379; 86140; 99283; 99284